=== PATIENT | male | born 1955 | race Caucasian/White ===

== ENCOUNTER 2019-05-24 10:17 | Emergency (ER) | payer OTHER ==
[~2019-05-24] VITALS: Ht 175.2 cm; Wt 96.3 kg
--- NOTE | 2019-05-24 11:08 | ED General ---
General Chief Complaint: Head/Cervical Problems Stated Complaint: JAW/HEAD PAIN Nursing Triage Note: Patient presents [place] the ED from the [place] with c/o of left sided jaw/head pain. Patient has states that he has had this pain since last and it is actually better today. Describes the pain as a throbbing or buzzing feeling. His friend reports that the patient had a massive stroke 4 or 5 years ago and has difficulty communicating verbally. The patient denies any weakness or visual disturbances at this time. Nursing Sepsis Screen: No Definite Risk History of Present Illness Date Seen by Provider: May 24, 2019 Time Seen by Provider: 11:07 Initial Comments Patient is a 63-year-old male who comes to the emergency department today complaining of pain along the side of his neck and in the left side of his head. Patient had onset of symptoms several days earlier but he feels like they did worsen last night. He did not have any trauma. The patient is primarily concerned that he has a prior history of significant stroke which didn't leave him with some speech difficulties. Today, he does not complain chest pain, shortness of breath, palpitations. He has no new focal neurologic complaints. He has been eating and drinking normally. No new or recent illness. The patient denies that he has a prior history of similar headaches to this one. No fever or chills. Allergies and Home Medications Allergies Coded Allergies: No Known Drug Allergies (Unverified , 05/24/19) Patient Home Medication List Home Medication List Reviewed: Yes Review of Systems Review of Systems Constitutional: no symptoms reported EENTM: no symptoms reported Respiratory: no symptoms reported Cardiovascular: no symptoms reported Genitourinary: no symptoms reported Musculoskeletal: no symptoms reported Skin: no symptoms reported Psychiatric/Neurological: See HPI All Other Systems Reviewed Negative Unless Noted: Yes Past Jplzamt-Ruosyl-Tkyotq Hx Patient Social History Recent Foreign Travel: No Contact w/Someone Who Travel: No Recent Infectious Disease Expo: No Physical Abuse: No Sexual Abuse: No Mistreated: No Fear: No Physical Exam Vital Signs Vital Signs - First Documented 05/24/19 10:26 Temp 36.7 Pulse 76 Resp 18 B/P (MAP) 178/96 (123) Pulse Ox 99 O2 Delivery Room Air Capillary Refill : Less Than 3 Seconds Height, Weight, BMI Height: '" Weight: lbs. oz. kg; 31.00 BMI Method: General Appearance: No Apparent Distress, WD/WN Progress/Results/Core Measures Suspected Sepsis Recent Fever Within 48 Hours: No Infection Criteria Present: None New/Unexplained Altered Menta: No Sepsis Screen: No Definite Risk SIRS Temperature: Pulse: 76 Respiratory Rate: 18 Laboratory Tests 05/24/19 11:20: White Blood Count 6.1 Blood Pressure 178 /96 Mean: 123 Laboratory Tests 05/24/19 11:20: Creatinine 1.05, Platelet Count 138 Results/Orders Lab Results Laboratory Tests Test 05/24/19 11:20 Range/Units White Blood Count 6.1 4.3-11.0 10^3/uL Red Blood Count 4.92 4.35-5.85 10^6/uL Hemoglobin 14.9 13.3-17.7 G/DL Hematocrit 43 40-54 % Mean Corpuscular Volume 87 80-99 FL Mean Corpuscular Hemoglobin 30 25-34 PG Mean Corpuscular Hemoglobin Concent 35 32-36 G/DL Red Cell Distribution Width 13.0 10.0-14.5 % Platelet Count 138 130-400 10^3/uL Mean Platelet Volume 10.4 7.4-10.4 FL Neutrophils (%) (Auto) 77 H 42-75 % Lymphocytes (%) (Auto) 16 12-44 % Monocytes (%) (Auto) 5 0-12 % Eosinophils (%) (Auto) 1 0-10 % Basophils (%) (Auto) 0 0-10 % Neutrophils # (Auto) 4.7 1.8-7.8 X 10^3 Lymphocytes # (Auto) 1.0 1.0-4.0 X 10^3 Monocytes # (Auto) 0.3 0.0-1.0 X 10^3 Eosinophils # (Auto) 0.1 0.0-0.3 10^3/uL Basophils # (Auto) 0.0 0.0-0.1 10^3/uL Sodium Level 137 135-145 MMOL/L Potassium Level 3.7 3.6-5.0 MMOL/L Chloride Level 100 98-107 MMOL/L Carbon Dioxide Level 25 21-32 MMOL/L Anion Gap 12 5-14 MMOL/L Blood Urea Nitrogen 12 7-18 MG/DL Creatinine 1.05 0.60-1.30 MG/DL Estimat Glomerular Filtration Rate > 60 BUN/Creatinine Ratio 11 Glucose Level 106 H 70-105 MG/DL Calcium Level 9.3 8.5-10.1 MG/DL Troponin I < 0.30 <0.30 NG/ML My Orders Orders - ABBE TROY DO Ed Iv/Invasive Line Start (05/24/19 11:06) Ct Angio Head/Neck (05/24/19 11:06) Cbc With Automated Diff (05/24/19 11:06) Basic Metabolic Panel (05/24/19 11:06) Troponin I Fs (05/24/19 11:06) Ekg Tracing (05/24/19 11:06) Ns Iv 1000 Ml (Sodium Chloride 0.9%) (05/24/19 11:15) Iohexol Injection (Omnipaque 350 Mg/Ml 1 (05/24/19 11:30) Received Contrast (Hold Metformin- Contr (05/24/19 11:30) Sodium Chloride Flush (Catheter Flush Sy (05/24/19 11:30) Ns (Ivpb) (Sodium Chloride 0.9% Ivpb Bag (05/24/19 11:30) Medications Given in ED Current Medications Medications Dose Ordered Sig/Hannah Route Start Time Stop Time Status Last Admin Dose Admin Iohexol 75 ml ONCE ONCE IV 05/24/19 11:30 05/24/19 11:31 DC 05/24/19 12:11 75 ML Sodium Chloride 10 ml NEEDED PRN IV 05/24/19 11:30 05/24/19 12:11 10 ML Sodium Chloride 100 ml ONCE ONCE IV 05/24/19 11:30 05/24/19 11:31 DC 05/24/19 12:11 100 ML Vital Signs/I&O 05/24/19 10:26 Temp 36.7 Pulse 76 Resp 18 B/P (MAP) 178/96 (123) Pulse Ox 99 O2 Delivery Room Air Capillary Refill : Less Than 3 Seconds Blood Pressure Mean: 123 POS Progress Note : Time: 11:45 Progress Note Patient is seen and examined. He primarily has a headache although he reports his pain is also in the left side of his neck. His neurologic exam is entirely normal. EKG is completed and does not show any evidence for acute ischemic changes. We'll check basic labs and do CT angiography of the head and neck. He is offered medications for discomfort but declined the knee at this time. 13:00: All results are reviewed and discussed with the patient. All of his questions are answered. Today, no acute findings on CT angiography to explain his symptoms. His EKG is unremarkable. Troponin is not elevated. Plan is for discharge home. Patient is agreeable. Return precautions are discussed and he is recommended to come back to the ER as needed. Otherwise, follow-up with primary care doctor. ECG Initial ECG Impression Date: May 24, 2019 Initial ECG Impression Time: 11:20 Initial ECG Rate: 69 Initial ECG Rhythm: Normal Sinus Initial ECG Impression: Normal Departure Impression Primary Impression: Headache Disposition: 01 HOME, SELF-CARE Condition: Stable ABBE TROY DO May 24, 2019 11:08 POS
[2019-05-24] MEDS ORDERED: NS IV 1000 ML 1,000 ML IV SCH (11:15)
[2019-05-24] MEDS ORDERED: NS 100 ML (IVPB) BAG IV ONE (11:30)
[2019-05-24] MEDS ORDERED: IOHEXOL 350 MG/ML 100 ML (OMNIPAQUE 350) VIAL IV ONE (11:30)
[2019-05-24] MEDS ORDERED: HOLD METFORMIN - RECEIVED CONTRAST 20 ML VIAL IV SCH (11:30)
[2019-05-24] MEDS ORDERED: CATHETER FLUSH 10 ML SYR IV PRN (11:30)
[2019-05-24 11:35] LABS: HEMATOCRIT 43 % (40-54); HEMOGLOBIN 14.9 G/DL (13.3-17.7); MEAN CORPUSCULAR HEMOGLOBIN 30 PG (25-34); MEAN CORPUSCULAR HGB CONC 35 G/DL (32-36); MEAN CORPUSCULAR VOLUME 87 FL (80-99); PLATELET COUNT 138 10^3/uL (130-400); WHITE BLOOD COUNT 6.1 10^3/uL (4.3-11.0)
[2019-05-24 11:36] LABS: BASOPHILS % (AUTO) 0 % (0-10); EOSINOPHILS # (AUTO) 0.1 10^3/uL (0.0-0.3); EOSINOPHILS % (AUTO) 1 % (0-10); LYMPHOCYTES % (AUTO) 16 % (12-44); MEAN PLATELET VOLUME 10.4 FL (7.4-10.4); MONOCYTES # (AUTO) 0.3 X 10^3 (0.0-1.0); MONOCYTES % (AUTO) 5 % (0-12); NEUTROPHILS # (AUTO) 4.7 X 10^3 (1.8-7.8); NEUTROPHILS % (AUTO) 77 % (42-75)
[2019-05-24 11:53] LABS: BUN/CREATININE RATIO 11; CALCIUM 9.3 MG/DL (8.5-10.1); CARBON DIOXIDE 25 MMOL/L (21-32); CHLORIDE 100 MMOL/L (98-107); CREATININE SERUM 1.05 MG/DL (0.60-1.30); GFR ESTIMATED > 60; GLUCOSE 106 MG/DL (70-105); POTASSIUM 3.7 MMOL/L (3.6-5.0); SODIUM 137 MMOL/L (135-145)
--- NOTE | 2019-05-24 12:56 | Diagnostic Imaging Report ---
PROCEDURE: CT angiography of the head and CT angiography of the neck with and without contrast. TECHNIQUE: Contiguous noncontrast images were obtained from the skull base through the vertex. After intravenous contrast administration, helical CT angiography of the neck was performed. Source data was reformatted into 3D MIP projections. Delayed post contrast acquisition was also obtained. Auto Exposure Controls were utilized during the CT exam to meet ALARA standards for radiation dose reduction. INDICATION: Left-sided jaw pain. COMPARISON: There are no prior studies available for comparison. FINDINGS: The pre-intravenous contrast images of the brain show a prominent area of diminished density involving much of the left temporal, frontal, and parietal lobes. This appearance would be consistent with encephalomalacia from a prior infarct involving the distribution of left middle cerebral artery. There is no mass or hemorrhage evident on the pre intravenous contrast series, and there is no sign of any shift of the midline. There is mild compensatory dilatation of the left lateral ventricle due to the volume loss of the underlying left temporal, frontal, and parietal lobes. There is also a small amount of CSF along the anterior aspects of each frontal lobe. This appearance is of uncertain etiology and could be related to cortical atrophy alone. There is no extra-axial hemorrhage identified. The sinuses are generally clear, although there is a 1.7 cm retention cyst in the floor of the left maxillary antrum. The bone windows show no evidence for a fracture or for a destructive lesion. Following administration of intravenous contrast, there is no defect within the intracranial circulation to suggest a thrombus. There is no sign of an aneurysm of the [place] either. The images through the neck fail to show any sign of a hemodynamically significant stenosis of the common or internal carotid arteries. Both vertebral arteries were opacified, and the vertebral arteries appear codominant. The images through the neck fail to show any sign of a mass or adenopathy. The thyroid gland is unremarkable. The lung apices are clear. The reconstructed parasagittal images show moderate degenerative disc and bony disease at C3-C4. There is no fracture or acute bony abnormality identified. IMPRESSION: 1. There is no evidence for a large vessel occlusion. There is no sign of an aneurysm of the [place] either. If further imaging is desired, then MRI would be recommended. 2. There is no evidence for a hemodynamically significant stenosis of either carotid system. 3. These results were discussed with Dr. Keegan Kruse. Dictated by: Dictated on workstation # [id number]
[2019-05-24 13:10] VITALS: BP 146/92
== END 2019-05-24 13:10 | disposition home or self-care (01) ==
LOC: ER FS 10:19
DX: R51 Headache (principal)
CPT/HCPCS: 36415; 70496; 70498; 80048; 84484; 85025; 93005

== ENCOUNTER → 2021-05-25 | Outpatient (CLI) | payer OTHER | LOC: LAB FS 10:06 | PROVIDERS: ATTEND Nurse Practitioner | DX: G47.30 Sleep apnea, unspecified (principal); Z20.822 Contact with and (suspected) exposure to COVID-19 ==

== ENCOUNTER → 2021-05-27 | Outpatient (CLI) | payer MEDICARE, OTHER | LOC: SLEEP 19:17 | PROVIDERS: ATTEND Nurse Practitioner | DX: G47.33 Obstructive sleep apnea (adult) (pediatric) (principal); I49.9 Cardiac arrhythmia, unspecified; Z86.73 Personal history of transient ischemic attack (TIA), and cerebral infarction without residual deficits | CPT/HCPCS: 87635; 95810 ==

== ENCOUNTER 2022-03-18 11:02 | Emergency (ER) | payer OTHER ==
--- NOTE | 2022-03-18 11:12 | ED Fall/Injury ---
General Chief Complaint: Trauma-Non Activation Stated Complaint: FALL History of Present Illness Date Seen by Provider: Mar 18, 2022 Time Seen by Provider: 11:12 Initial Comments 66-year-old male presents following a fall. Patient was on a ladder yesterday when he fell backwards. Patient complaining of pain in his head he had in his left ribs. Patient does have a history of a prior stroke and does have some mild dysphagia and difficulty communicating. He has no other focal new weaknesses. Patient's family reports that outside of him complain of a decreased pain and headache that he is at his normal. Patient is currently on Eliquis. He sees a neurologist at [facility] that currently manages his stroke symptoms. He denies any other injuries from the fall. Allergies and Home Medications Allergies Coded Allergies: No Known Drug Allergies (Unverified , 05/24/19) Patient Home Medication List Home Medication List Reviewed: Yes Review of Systems Review of Systems Constitutional: no symptoms reported Eyes: No Symptoms Reported Ears, Nose, Mouth, Throat: no symptoms reported Respiratory: other (Posterior rib chest wall pain) Cardiovascular: no symptoms reported Gastrointestinal: no symptoms reported Genitourinary: no symptoms reported Musculoskeletal: no symptoms reported Skin: no symptoms reported Psychiatric/Neurological: See HPI Past Svznvtz-Snocnf-Xcclgj Hx Seasonal Allergies Seasonal Allergies: No Past Medical History Surgeries: Yes (EGD) Respiratory: No Cardiac: Yes High Cholesterol, Hypertension Neurological: Yes Stroke Genitourinary: Yes Benign Prostatic Hyperpl Gastrointestinal: No Musculoskeletal: No Endocrine: Yes Diabetes, Non-Insulin dep HEENT: No Cancer: No Psychosocial: No Integumentary: No Blood Disorders: No Physical Exam Vital Signs Vital Signs - First Documented 03/18/22 11:21 Temp 36.0 Pulse 83 Resp 16 B/P (MAP) 144/89 (107) Pulse Ox 95 O2 Delivery Room Air Capillary Refill : Height, Weight, BMI Height: '" Weight: lbs. oz. kg; 31.00 BMI Method: General Appearance: no apparent distress HEENT: normal ENT inspection Neck: full range of motion, supple Cardiovascular: normal peripheral pulses, regular rate, rhythm Respiratory: lungs clear, normal breath sounds, other (Tenderness to right posterior chest wall) Extremities: normal range of motion, non-tender Neurologic/Psychiatric: alert, aphasia, other (Patient at his baseline mentation per family) Skin: normal color, warm/dry Progress/Results/Core Measures Results/Orders My Orders Orders - LEE RICCI DO Ct Chest W (03/18/22 11:15) Ct Head/Cervical Spine Wo (03/18/22 11:15) Iohexol Injection (Omnipaque 350 Mg/Ml 1 (03/18/22 11:45) Received Contrast (Hold Metformin- Contr (03/18/22 11:45) Ns (Ivpb) (Sodium Chloride 0.9% Ivpb Bag (03/18/22 11:45) Sodium Chloride Flush (Catheter Flush Sy (03/18/22 11:45) Fentanyl Inj (Sublimaze Injection) (03/18/22 12:36) Human Prothrombin Complx(Pcc) (Kcentra K (03/18/22 12:45) Medications Given in ED Current Medications Medications Dose Ordered Sig/Hannah Route Start Time Stop Time Status Last Admin Dose Admin Iohexol 75 ml ONCE ONCE IV 03/18/22 11:45 03/18/22 11:46 DC 03/18/22 11:52 74 ML Prothrombin Complex Concent (Human) Traumatic hemorrhage 25 uni... ONCE ONCE IV 03/18/22 12:45 03/18/22 12:46 DC 03/18/22 13:11 2,500 UNIT Sodium Chloride 10 ml NEEDED PRN IV 03/18/22 11:45 03/18/22 14:00 DC 03/18/22 11:52 10 ML Sodium Chloride 100 ml ONCE ONCE IV 03/18/22 11:45 03/18/22 11:46 DC 03/18/22 11:52 80 ML Vital Signs/I&O 03/18/22 03/18/22 11:21 13:50 Temp 36.0 36.0 Pulse 83 75 Resp 16 16 B/P (MAP) 144/89 (107) 125/58 Pulse Ox 95 96 O2 Delivery Room Air Room Air Progress Progress Note : Progress Note Patient with 2 small subdurals. Patient is currently on Eliquis. With concern with her currently being on Eliquis due to prior stroke we will transfer to [facility]. We will give weight-based Kcentra. Patient to be transferred ER to ER with Dr. Haile and Dr. Branch accepting. Patient also with 10th rib fracture. Patient was stable and transferred via EMS in stable condition Diagnostic Imaging Diagonstic Imaging: CT Plain Films/CT/US/NM/MRI: head Comments Date of Exam:03/18/22 CT HEAD/CERVICAL SPINE WO PROCEDURE: CT head and CT cervical spine without contrast. TECHNIQUE: Multiple contiguous axial images were obtained through the brain and cervical spine without the use of intravenous contrast. Sagittal and coronal reformations through the cervical spine were then performed. Auto Exposure Controls were utilized during the CT exam to meet ALARA standards for radiation dose reduction. INDICATION: Head and neck injury, fall. COMPARISON: Comparison is made with head CT from 05/24/2019. FINDINGS: CT HEAD: There is a large area of encephalomalacia in the left middle cerebral artery territory, consistent with prior infarct. Smaller area of encephalomalacia in the right frontal lobe is noted from prior infarct. There is intravascular contrast present from CT chest performed earlier. This does compromise evaluation for potential intracranial hemorrhage. There are areas of hyperdensity noted in the subdural space along the frontoparietal convexities bilaterally, suggestive of very small bilateral subdural hematomas. No intraparenchymal hemorrhage is seen. There is no midline shift. Cisterns are patent. Visualized paranasal sinuses are clear apart from some mucosal thickening of the left maxillary sinus. IMPRESSION: 1. Very small acute subdural hematomas along the frontoparietal convexities bilaterally. No mass effect is identified. There is no midline shift. 2. Chronic changes of left MCA infarct. CT CERVICAL SPINE: Alignment is normal. There is generalized degenerative disc disease with variable disc space narrowing and marginal spurring, greatest at the C3-C4 level. No fracture or subluxation is identified. The prevertebral tissues are normal. Odontoid is intact. IMPRESSION: Cervical spondylosis. No acute bony abnormality is detected. Reviewed: Reviewed/Discussed Diagonstic Imaging: CT Plain Films/CT/US/NM/MRI: chest Comments Date of Exam:03/18/22 CT CHEST W PROCEDURE: CT chest with contrast only. TECHNIQUE: Multiple contiguous axial images were obtained through the chest after administration of intravenous contrast. Auto Exposure Controls were utilized during the CT exam to meet ALARA standards for radiation dose reduction. INDICATION: Head injury, back pain after a fall from 6 to 10 ft. high. COMPARISON: No relevant comparison. FINDINGS: There is no lung contusion, pneumothorax or hemothorax. The aorta is intact. No mediastinal or pericardial hemorrhage. There is a fracture of the right 10th rib laterally seen at the most inferior cut of this exam, image 144. No additional rib fracture deformity. The sternum, manubrium and diaphragm are intact. The visualized portions of the bilateral shoulders intact. Thoracic vertebral statures maintained. There is mild rightward convexity mid to upper thoracic, idiopathic scoliotic curvature without dysraphism or segmentation anomaly. The facet relationships unremarkable. The pedicles intact. No paraspinal hemorrhage. No thoracic spinal fracture identified. The visualized upper abdomen showed no free fluid, free air or visualized organ laceration. The right 10th rib fracture is adjacent to the caudal tip of the right hepatic lobe segment 6. There is a small hiatal hernia. IMPRESSION: 1. Right 10th rib fracture without evidence for pulmonary parenchymal or pleural injury. Intact aorta. No other acute or posttraumatic abnormality identified at chest CT. Reviewed: Reviewed/Discussed Departure Impression Primary Impression: Traumatic subdural hematoma Qualified Codes: S06.5X0A - Traumatic subdural hemorrhage without loss of consciousness, initial encounter Additional Impression: Right rib fracture Qualified Codes: S22.31XA - Fracture of one rib, right side, initial encounter for closed fracture Disposition: 02 XFER SHT-TRM HOSP Condition: Stable Transfer Transfer Reason: Exceeds level of care Time Spoke to Accepting Phy: 12:40 Transfer Progress Notes pt accepted by Dr Gary Sultana Transfer Facility: [facility] Method of Transfer: EMS Departure-Patient Inst. Referrals: NEIL DAVIS (PCP) Primary Care Physician LEE RICCI DO Mar 18, 2022 11:12
[2022-03-18] MEDS ORDERED: NS 100 ML (IVPB) BAG IV ONE (11:45)
[2022-03-18] MEDS ORDERED: IOHEXOL 350 MG/ML 100 ML (OMNIPAQUE 350) VIAL IV ONE (11:45)
[2022-03-18] MEDS ORDERED: CATHETER FLUSH 10 ML SYR IV PRN (11:45)
[2022-03-18] MEDS ORDERED: HOLD METFORMIN - RECEIVED CONTRAST 20 ML VIAL IV SCH (11:45)
--- NOTE | 2022-03-18 12:13 | Diagnostic Imaging Report ---
PROCEDURE: CT chest with contrast only. TECHNIQUE: Multiple contiguous axial images were obtained through the chest after administration of intravenous contrast. Auto Exposure Controls were utilized during the CT exam to meet ALARA standards for radiation dose reduction. INDICATION: Head injury, back pain after a fall from 6 to 10 ft. high. COMPARISON: No relevant comparison. FINDINGS: There is no lung contusion, pneumothorax or hemothorax. The aorta is intact. No mediastinal or pericardial hemorrhage. There is a fracture of the right 10th rib laterally seen at the most inferior cut of this exam, image 144. No additional rib fracture deformity. The sternum, manubrium and diaphragm are intact. The visualized portions of the bilateral shoulders intact. Thoracic vertebral statures maintained. There is mild rightward convexity mid to upper thoracic, idiopathic scoliotic curvature without dysraphism or segmentation anomaly. The facet relationships unremarkable. The pedicles intact. No paraspinal hemorrhage. No thoracic spinal fracture identified. The visualized upper abdomen showed no free fluid, free air or visualized organ laceration. The right 10th rib fracture is adjacent to the caudal tip of the right hepatic lobe segment 6. There is a small hiatal hernia. IMPRESSION: 1. Right 10th rib fracture without evidence for pulmonary parenchymal or pleural injury. Intact aorta. No other acute or posttraumatic abnormality identified at chest CT. Dictated by: Dictated on workstation # [id number]
--- NOTE | 2022-03-18 12:14 | Diagnostic Imaging Report ---
PROCEDURE: CT head and CT cervical spine without contrast. TECHNIQUE: Multiple contiguous axial images were obtained through the brain and cervical spine without the use of intravenous contrast. Sagittal and coronal reformations through the cervical spine were then performed. Auto Exposure Controls were utilized during the CT exam to meet ALARA standards for radiation dose reduction. INDICATION: Head and neck injury, fall. COMPARISON: Comparison is made with head CT from 05/24/2019. FINDINGS: CT HEAD: There is a large area of encephalomalacia in the left middle cerebral artery territory, consistent with prior infarct. Smaller area of encephalomalacia in the right frontal lobe is noted from prior infarct. There is intravascular contrast present from CT chest performed earlier. This does compromise evaluation for potential intracranial hemorrhage. There are areas of hyperdensity noted in the subdural space along the frontoparietal convexities bilaterally, suggestive of very small bilateral subdural hematomas. No intraparenchymal hemorrhage is seen. There is no midline shift. Cisterns are patent. Visualized paranasal sinuses are clear apart from some mucosal thickening of the left maxillary sinus. IMPRESSION: 1. Very small acute subdural hematomas along the frontoparietal convexities bilaterally. No mass effect is identified. There is no midline shift. 2. Chronic changes of left MCA infarct. CT CERVICAL SPINE: Alignment is normal. There is generalized degenerative disc disease with variable disc space narrowing and marginal spurring, greatest at the C3-C4 level. No fracture or subluxation is identified. The prevertebral tissues are normal. Odontoid is intact. IMPRESSION: Cervical spondylosis. No acute bony abnormality is detected. The emergency department was notified of these results. Dictated by: Dictated on workstation # [id number]
[2022-03-18] MEDS ORDERED: fentaNYL INJ 100 MCG/2 ML AMP IVP STA (12:36)
[2022-03-18] MEDS ORDERED: HUMAN PROTHROMBIN COMPLX(PCC) 500 UNIT (KCENTRA) IV ONE (12:45)
[2022-03-18 13:50] VITALS: BP 125/58
== END 2022-03-18 13:50 | disposition short-term general hospital (02) ==
LOC: EDUNIT# 11:02 → ER FS 11:03
DX: S22.31XA Fracture of one rib, right side, initial encounter for closed fracture (principal); S06.5XAA Traumatic subdural hemorrhage with loss of consciousness status unknown, initial encounter; Z86.73 Personal history of transient ischemic attack (TIA), and cerebral infarction without residual deficits; Z79.01 Long term (current) use of anticoagulants; W11.XXXA Fall on and from ladder, initial encounter
CPT/HCPCS: 70450; 71260; 72125; 96374; 96375